=== PATIENT | male | born 1965 | race Caucasian/White ===

== ENCOUNTER 2019-06-21 02:13 | Emergency (ER) | payer OTHER ==
[~2019-06-21] VITALS: Ht 177.8 cm; Wt 109.2 kg
--- NOTE | 2019-06-21 02:35 | ED.ADGEN ---
Past History Past Medical History: Gallstones, GERD, Hypertension Adult General Chief Complaint Chief Complaint ".. I think it my gall bladder.. I had the same symptoms...about 9 yrs ago.. my gall bladder full of stones.. but I had emmanuel cakes.... and full meal tonight.. and it set it off..." HPI HPI Patient is a 54 year old male who presents with above hx and complaints nausea, vomiting, right upper quadrant pain which she relates is similar to his gallbladder exacerbations. Patient denies any intake bad food. Recent travel to [facility]. Denies any history of tarry stools. Denies any history immunosuppression. Normally follows at [facility]. Pt. father and daughter have both had to have cholecystectomy for gallbladder disease. Review of Systems Review of Systems Constitutional: Denies fever or chills [] Eyes: Denies change in visual acuity, redness, or eye pain [] HENT: Denies nasal congestion or sore throat [] Respiratory: Denies cough or shortness of breath [] Cardiovascular: No additional information not addressed in HPI [] GI: Plaints of right upper quadrant abdominal pain, nausea, vomiting, . Denies bloody stools or diarrhea [] : Denies dysuria or hematuria [] Musculoskeletal: Denies back pain or joint pain [] Integument: Denies rash or skin lesions [] Neurologic: Denies headache, focal weakness or sensory changes [] Endocrine: Denies polyuria or polydipsia [] All other systems were reviewed and found to be within normal limits, except as documented in this note. Family History Family History Noncontributory Current Medications Current Medications Current Medications Medications (Trade) Dose Ordered Sig/Teodora Start Time Stop Time Status Last Admin Dose Admin Famotidine (Pepcid Vial) 20 mg 1X ONCE 06/21/19 03:30 06/21/19 03:31 DC 06/21/19 03:38 20 MG Info (Do NOT chart on this entry -- for MONITORING) 1 each PRN DAILY PRN 06/21/19 03:15 06/21/19 05:36 DC Iohexol (Omnipaque 240 Mg/ml) 30 ml 1X ONCE 06/21/19 03:30 06/21/19 03:31 DC 06/21/19 04:14 30 ML Iohexol (Omnipaque 300 Mg/ml) 75 ml 1X ONCE 06/21/19 03:30 06/21/19 03:31 DC 06/21/19 04:14 75 ML Ketorolac Tromethamine (Toradol 30mg Vial) 30 mg 1X ONCE 06/21/19 05:15 06/21/19 05:17 DC 06/21/19 05:16 30 MG Lactated Ringer's 1,000 ml @ 1,000 mls/hr Q1H 06/21/19 03:30 06/21/19 04:29 DC 06/21/19 03:38 1,000 MLS/HR Magnesium Hydroxide (Milk Of Magnesia) 2,400 mg 1X ONCE 06/21/19 03:30 06/21/19 03:31 DC 06/21/19 03:38 2,400 MG Morphine Sulfate (Morphine 10mg Syringe) 10 mg 1X ONCE 06/21/19 04:00 06/21/19 04:01 DC 06/21/19 03:38 10 MG Ondansetron HCl (Zofran) 4 mg STK-MED ONCE 06/21/19 05:13 06/21/19 05:13 DC See nursing for home meds Allergies Allergies Allergies Coded Allergies Type Severity Reaction Last Updated Verified No Known Drug Allergies 06/21/19 No No known drug allergies Physical Exam Physical Exam Constitutional: Well developed, well nourished, no acute distress, non-toxic appearance. [] HENT: Normocephalic, atraumatic, bilateral external ears normal, oropharynx moist, no oral exudates, nose normal. [] Eyes: PERRLA, EOMI, conjunctiva normal, no discharge. [] Neck: Normal range of motion, no tenderness, supple, no stridor. [] Cardiovascular:Heart rate regular rhythm, no murmur [] Lungs & Thorax: Bilateral breath sounds clear to auscultation [] Abdomen: Bowel sounds normal, soft, he has right upper tenderness tenderness, no masses, no pulsatile masses. [] Rebound to right upper drip. Skin: Warm, dry, no erythema, no rash. [] Back: No tenderness, no CVA tenderness. [] Extremities: No tenderness, no cyanosis, no clubbing, ROM intact, no edema. [] Neurologic: Alert and oriented X 3, normal motor function, normal sensory function, no focal deficits noted. [] Psychologic: Affect normal, judgement normal, mood normal. [] Current Patient Data Vital Signs Vital Signs Date Time Temp Pulse Resp B/P (MAP) Pulse Ox O2 Delivery O2 Flow Rate FiO2 06/21/19 05:17 66 18 146/92 (110) 97 Room Air 06/21/19 02:15 98.7 Lab Results Laboratory Tests Test 06/21/19 03:25 06/21/19 03:30 Urine Collection Type Unknown Urine Color Yellow Urine Clarity Clear Urine pH 5.0 Urine Specific Zillah >=1.030 Urine Protein Neg (NEG-TRACE) Urine Glucose (UA) Neg mg/dL (NEG) Urine Ketones (Stick) Neg mg/dL (NEG) Urine Blood Neg (NEG) Urine Nitrite Neg (NEG) Urine Bilirubin Neg (NEG) Urine Urobilinogen Dipstick 0.2 mg/dL (0.2 mg/dL) Urine Leukocyte Esterase Neg (NEG) Urine RBC 0 /HPF (0-2) Urine WBC Rare /HPF (0-4) Urine Squamous Epithelial Cells Occ /LPF Urine Bacteria 0 /HPF (0-FEW) Urine Opiates Screen Neg (NEG) Urine Methadone Screen Neg (NEG) Urine Barbiturates Neg (NEG) Urine Phencyclidine Screen Neg (NEG) Urine Amphetamine/Methamphetamine Neg (NEG) Urine Benzodiazepines Screen Neg (NEG) Urine Cocaine Screen Neg (NEG) Urine Cannabinoids Screen Neg (NEG) Urine Ethyl Alcohol Neg (NEG) White Blood Count 8.4 x10^3/uL (4.0-11.0) Red Blood Count 5.15 x10^6/uL (4.30-5.70) Hemoglobin 14.5 g/dL (13.0-17.5) Hematocrit 43.9 % (39.0-53.0) Mean Corpuscular Volume 85 fL (79-100) Mean Corpuscular Hemoglobin 28 pg (25-35) Mean Corpuscular Hemoglobin Concent 33 g/dL (31-37) Red Cell Distribution Width 13.4 % (11.5-14.5) Platelet Count 218 x10^3/uL (140-400) Neutrophils (%) (Auto) 65 % (31-73) Lymphocytes (%) (Auto) 26 % (24-48) Monocytes (%) (Auto) 7 % (0-9) Eosinophils (%) (Auto) 2 % (0-3) Basophils (%) (Auto) 1 % (0-3) Neutrophils # (Auto) 5.4 x10^3uL (1.8-7.7) Lymphocytes # (Auto) 2.2 x10^3/uL (1.0-4.8) Monocytes # (Auto) 0.5 x10^3/uL (0.0-1.1) Eosinophils # (Auto) 0.2 x10^3/uL (0.0-0.7) Basophils # (Auto) 0.1 x10^3/uL (0.0-0.2) Prothrombin Time 10.2 SEC (9.4-11.4) Prothrombin Time INR 1.0 (0.9-1.1) Activated Partial Thromboplast Time 25 SEC (23-33) Sodium Level 142 mmol/L (136-145) Potassium Level 4.2 mmol/L (3.5-5.1) Chloride Level 105 mmol/L (98-107) Carbon Dioxide Level 28 mmol/L (21-32) Anion Gap 9 (6-14) Blood Urea Nitrogen 12 mg/dL (8-26) Creatinine 1.3 mg/dL (0.7-1.3) Estimated GFR (Cockcroft-Gault) 57.3 Glucose Level 128 mg/dL (70-99) H Calcium Level 8.9 mg/dL (8.5-10.1) Total Bilirubin 0.4 mg/dL (0.2-1.0) Direct Bilirubin 0.1 mg/dL (0.0-0.2) Aspartate Amino Transferase (AST) 21 U/L (15-37) Alanine Aminotransferase (ALT) 26 U/L (16-63) Alkaline Phosphatase 44 U/L (46-116) L Creatine Kinase 226 U/L (39-308) Troponin I Quantitative < 0.017 ng/mL (0-0.055) Total Protein 7.1 g/dL (6.4-8.2) Albumin 4.0 g/dL (3.4-5.0) Amylase Level 40 U/L (25-115) Lipase 148 U/L (73-393) EKG EKG []My interpretation EKG shows a sinus rhythm at 63 bpm. Some J-point elevation in V2 and 3 but no contralateral changes[] Radiology/Procedures Radiology/Procedures [address] [address] IMAGING REPORT Signed PATIENT: ENMANUEL MCKOY ACCOUNT: [id number] : 1965 LOCATION: ER AGE: 54 SEX: M EXAM STATUS: REG ER ORD. PHYSICIAN: PETTY DOWD MD REASON: Upper abdomen pain, nausea. Hx: Gallstones PROCEDURE: CT ABD PELV W/ORAL&IV CONTRAST CT ABD PELV W/ORAL IV CONTRAST History: Upper abdominal pain, nausea, history of gallstones Comparison: None. Technique: After administration of intravenous contrast, helical CT of the abdomen and pelvis was performed from the lung bases through the ischial tuberosities. Coronal and sagittal reconstructions were obtained. 75 mL of Omnipaque 300 were used. One or more of the following dose reduction techniques were utilized: Automated exposure control (AEC), Adjustment of mA and/or kV according to patient size, Use of iterative reconstruction technique such as ASiR, CT scan done according to ALARA and image gently/image wisely Abdomen Findings: The visualized lung bases are clear. The liver, pancreas, spleen, and bilateral adrenal glands are normal. Cholelithiasis. Symmetric renal enhancement. There is no focal renal mass. There is no hydronephrosis. The visualized loops of small bowel are normal. The visualized loops of large bowel are normal. There is no evidence of bowel obstruction. Appendix is normal. There is no free fluid. There is no mesenteric or retroperitoneal adenopathy. The abdominal aorta is normal in caliber. Pelvis Findings: Diffuse bladder wall thickening. Mildly enlarged prostate measures 5 cm in transverse dimension. No pelvic free fluid. There is no pelvic or inguinal adenopathy. Degenerative changes of the spine.. IMPRESSION: 1. Cholelithiasis. Normal caliber common bile duct. 2. Diffuse bladder wall thickening, which may relate to under distention, obstructive uropathy, or potentially cystitis. Consider urinalysis, as clinically warranted. Electronically signed by: Cate Beaver MD (06/21/2019 4:36 AM) [facility] DICTATED AND SIGNED BY: CATE BEAVER MD DATE: 06/21/19 0436 CC: PETTY DOWD MD; WINIFRED BRENNAN MD ~ [address] [place] [id number] IMAGING REPORT Signed PATIENT: ENMANUEL MCKOY ACCOUNT: [id number] : 1965 LOCATION: ER AGE: 54 SEX: M EXAM STATUS: REG ER ORD. PHYSICIAN: PETTY ODWD MD REASON: Upper abdomen pain PROCEDURE: ACUTE ABDOMEN SERIES ACUTE ABDOMEN SERIES INDICATION: Upper abdominal pain. COMPARISON STUDY: None. FINDINGS: Lungs: Normal lung volume. No pulmonary mass or consolidation. The tracheobronchial tree and hilar structures are normal. Pleura: No pleural effusion or pneumothorax. Heart and Mediastinum: The cardiomediastinal silhouette is normal. The great vessels of the thorax are normal. Abdomen: Nonobstructive bowel gas pattern. Moderate colonic stool. Bones and Soft Tissues: The bones and soft tissues are within normal limits. IMPRESSION: No acute cardiopulmonary process. Nonobstructive bowel gas pattern. Moderate colonic stool. Electronically signed by: Cate Beaver MD (06/21/2019 4:10 AM) [facility] DICTATED AND SIGNED BY: CATE BEAVER MD DATE: 06/21/19409 CC: PETTY DOWD MD; WINIFRED BRENNAN Course & Med Decision Making Course & Med Decision Making Pertinent Labs and Imaging studies reviewed. (See chart for details) Pr. remain on clear fluid diet for the next 2 days. No solid or milk products. Tylenol and ibuprofen for pain. May take Vicoprofen up 4 times a day for marked discomfort. Take Zofran 8 mg up to 4 times a day for nausea and vomiting. Take Zantac 50 mg twice a day. Follow-up primary care. Follow up with surgery for elective cholecystectomy. Return if any concerns. [] Final Impression Final Impression 1. Abdomen pain[] 2. Biliary Colic/stones 3. Constipation Dragon Disclaimer Dragon Disclaimer This electronic medical record was generated, in whole or in part, using a voice recognition dictation system. Dragon Disclaimer This chart was dictated in whole or in part using Voice Recognition software in a busy, high-work load, and often noisy Emergency Department environment. It may contain unintended and wholly unrecognized errors or omissions. PETTY DOWD MD Jun 21, 2019 02:35
--- NOTE | 2019-06-21 02:56 | EKG ---
[address] [address] Test Date: 2019-06-21 Test Time: 02:53:41 Pat Name: ENMANUEL MCKOY Department: Room: Gender: M [employer]otype [employer]ator: : 1965 Requested By: PETTY DOWD Order Number: [id number] Reading MD: Measurements Intervals Patten Rate: 63 P: 39 GA: 182 QRS: 56 QRSD: 92 T: 13 QT: 370 QTc: 381 Interpretive Statements SINUS RHYTHM NORMAL ECG RI6.01 No previous ECG available for comparison
[2019-06-21] MEDS ORDERED: CONTRAST GIVEN MC PRN (03:15)
[2019-06-21] MEDS ORDERED: MAGNESIUM HYDROXIDE 2,400 MG/30 ML ORAL.SUSP. PO ONE (03:30)
[2019-06-21] MEDS ORDERED: IOHEXOL 240 MG/ML 50ML VIAL. PO ONE (03:30)
[2019-06-21] MEDS ORDERED: IV RINGERS SOLUTION,LACTATED 1,000 ML IV SCH (03:30)
[2019-06-21] MEDS ORDERED: FAMOTIDINE 20 MG/2 ML VIAL IVP ONE (03:30)
[2019-06-21] MEDS ORDERED: IOHEXOL 300 MG/ML 75 ML VIAL. IV ONE (03:30)
[2019-06-21 03:42] LABS: BASO # 0.1 x10^3/uL (0.0-0.2); BASO % 1 % (0-3); EOS # 0.2 x10^3/uL (0.0-0.7); EOS % 2 % (0-3); HEMATOCRIT 43.9 % (39.0-53.0); HEMOGLOBIN 14.5 g/dL (13.0-17.5); LYMPH # 2.2 x10^3/uL (1.0-4.8); LYMPH % 26 % (24-48); MEAN CORPUSCULAR HEMOGLOBIN 28 pg (25-35); MEAN CORPUSCULAR HGB CONC 33 g/dL (31-37); MEAN CORPUSCULAR VOLUME 85 fL (79-100); MONO # 0.5 x10^3/uL (0.0-1.1); MONO % 7 % (0-9); NEUT # 5.4 x10^3uL (1.8-7.7); NEUT % 65 % (31-73); PLATELET COUNT 218 x10^3/uL (140-400); RED BLOOD COUNT 5.15 x10^6/uL (4.30-5.70); RED CELL DISTRIBUTION WIDTH 13.4 % (11.5-14.5); WHITE BLOOD COUNT 8.4 x10^3/uL (4.0-11.0)
[2019-06-21 03:56] LABS: BARBITURATES NEG (NEG); BENZODIAZEPINES NEG (NEG); CANNABINOIDS NEG (NEG); COCAINE NEG (NEG); METHADONE NEG (NEG); OPIATES NEG (NEG); PHENCYCLIDINE NEG (NEG)
[2019-06-21 04:00] LABS: CALCIUM 8.9 mg/dL (8.5-10.1); CREATININE 1.3 mg/dL (0.7-1.3); DIRECT BILIRUBIN 0.1 mg/dL (0.0-0.2); GFR 57.3; POTASSIUM 4.2 mmol/L (3.5-5.1); TOTAL BILIRUBIN 0.4 mg/dL (0.2-1.0); TOTAL PROTEIN 7.1 g/dL (6.4-8.2)
[2019-06-21] MEDS ORDERED: MORPHINE SULFATE 10 MG/ML SYRINGE. SQ ONE (04:00)
--- NOTE | 2019-06-21 04:12 | RAD ---
ACUTE ABDOMEN SERIES INDICATION: Upper abdominal pain. COMPARISON STUDY: None. FINDINGS: Lungs: Normal lung volume. No pulmonary mass or consolidation. The tracheobronchial tree and hilar structures are normal. Pleura: No pleural effusion or pneumothorax. Heart and Mediastinum: The cardiomediastinal silhouette is normal. The great vessels of the thorax are normal. Abdomen: Nonobstructive bowel gas pattern. Moderate colonic stool. Bones and Soft Tissues: The bones and soft tissues are within normal limits. IMPRESSION: No acute cardiopulmonary process. Nonobstructive bowel gas pattern. Moderate colonic stool. Electronically signed by: Moises Beaver MD (06/21/2019 4:10 AM) [facility]
[2019-06-21 04:14] LABS: AMPHETAMINE/METHAMPHETAMINE NEG (NEG)
--- NOTE | 2019-06-21 04:39 | RAD ---
CT ABD PELV W/ORAL IV CONTRAST History: Upper abdominal pain, nausea, history of gallstones Comparison: None. Technique: After administration of intravenous contrast, helical CT of the abdomen and pelvis was performed from the lung bases through the ischial tuberosities. Coronal and sagittal reconstructions were obtained. 75 mL of Omnipaque 300 were used. One or more of the following dose reduction techniques were utilized: Automated exposure control (AEC), Adjustment of mA and/or kV according to patient size, Use of iterative reconstruction technique such as ASiR, CT scan done according to ALARA and image gently/image wisely Abdomen Findings: The visualized lung bases are clear. The liver, pancreas, spleen, and bilateral adrenal glands are normal. Cholelithiasis. Symmetric renal enhancement. There is no focal renal mass. There is no hydronephrosis. The visualized loops of small bowel are normal. The visualized loops of large bowel are normal. There is no evidence of bowel obstruction. Appendix is normal. There is no free fluid. There is no mesenteric or retroperitoneal adenopathy. The abdominal aorta is normal in caliber. Pelvis Findings: Diffuse bladder wall thickening. Mildly enlarged prostate measures 5 cm in transverse dimension. No pelvic free fluid. There is no pelvic or inguinal adenopathy. Degenerative changes of the spine.. IMPRESSION: 1. Cholelithiasis. Normal caliber common bile duct. 2. Diffuse bladder wall thickening, which may relate to under distention, obstructive uropathy, or potentially cystitis. Consider urinalysis, as clinically warranted. Electronically signed by: Moises Beaver MD (06/21/2019 4:36 AM) [facility]
[2019-06-21] MEDS ORDERED: HYDR-1179 PO (05:00)
[2019-06-21] MEDS ORDERED: RANI-376 PO (05:00)
[2019-06-21] MEDS ORDERED: ONDA8TAB9 PO (05:00)
[2019-06-21] MEDS ORDERED: ONDANSETRON PF 4 MG/2 ML VIAL. ONE (05:13)
[2019-06-21] MEDS ORDERED: KETOROLAC 30 MG/ML VIAL. IV ONE (05:15)
[2019-06-21 05:17] VITALS: BP 146/92
[2019-06-21 05:24] LABS: BACTERIA,URINE 0 /HPF (0-FEW); BILIRUBIN,URINE NEG (NEG); CLARITY,URINE CLEAR; COLOR,URINE YELLOW; GLUCOSE,URINE NEG (NEG); NITRITE,URINE NEG (NEG); RBC,URINE 0 /HPF (0-2); UROBILINOGEN,URINE 0.2 mg/dL (0.2 mg/dL); WBC,URINE RARE /HPF (0-4)
[2019-06-21 05:25] LABS: SQUAMOUS EPITHELIAL CELL,UR OCC /LPF
[2019-06-21] MEDS ORDERED: ONDANSETRON PF 4 MG/2 ML VIAL. IV ONE (05:30)
== END 2019-06-21 05:23 | disposition home or self-care (01) ==
LOC: ER 02:13
DX: K80.20 Calculus of gallbladder without cholecystitis without obstruction (principal); K59.00 Constipation, unspecified; R11.2 Nausea with vomiting, unspecified; K21.9 Gastro-esophageal reflux disease without esophagitis; I10 Essential (primary) hypertension
CPT/HCPCS: 36415; 74022; 74177; 80048; 80076; 80307; 81001; 82150; 82550; 83690; 84484; 85025; 85610; 85730; 93005; 96361; 96372; 96374; 96375; 99285; J1885; J2270; J2405; J3490; J7120; Q9966; Q9967

== ENCOUNTER 2020-01-11 14:10 | Emergency (ER) | payer OTHER ==
[~2020-01-11] VITALS: Ht 177.8 cm; Wt 109.2 kg
[2020-01-11 14:10] VITALS: BP 131/75
[~2020-01-11 14:10] MED LIST: HYDR-1179 PO; ONDA8TAB9 PO; RANI-376 PO
[2020-01-11] MEDS ORDERED: IV NORMAL SALINE 50ML 50 ML ONE (14:40)
[2020-01-11] MEDS ORDERED: PIPERACILLIN/TAZOBACTAM 4.5 GM VIAL IV ONE (14:41)
[2020-01-11] MEDS ORDERED: IV NORMAL SALINE 1,000ML 1,000 ML IV ONE (15:00)
[2020-01-11] MEDS ORDERED: PIPERACILLIN/TAZOBACTAM 4.5 GM in IV NORMAL SALINE 50ML 50 ML IV ONE (15:00)
[2020-01-11 15:05] LABS: CALCIUM 9.2 mg/dL (8.5-10.1); CREATININE 1.2 mg/dL (0.7-1.3); GFR 62.9; POTASSIUM 3.8 mmol/L (3.5-5.1)
[2020-01-11 15:10] LABS: BASO # 0.1 x10^3/uL (0.0-0.2); BASO % 1 % (0-3); EOS # 0.1 x10^3/uL (0.0-0.7); EOS % 1 % (0-3); HEMATOCRIT 42.9 % (39.0-53.0); HEMOGLOBIN 14.3 g/dL (13.0-17.5); LYMPH % 19 % (24-48); MEAN CORPUSCULAR HEMOGLOBIN 28 pg (25-35); MEAN CORPUSCULAR HGB CONC 33 g/dL (31-37); MEAN CORPUSCULAR VOLUME 86 fL (79-100); MONO # 0.9 x10^3/uL (0.0-1.1); MONO % 9 % (0-9); NEUT # 7.7 x10^3uL (1.8-7.7); NEUT % 71 % (31-73); PLATELET COUNT 198 x10^3/uL (140-400); RED BLOOD COUNT 5.02 x10^6/uL (4.30-5.70); RED CELL DISTRIBUTION WIDTH 13.8 % (11.5-14.5); WHITE BLOOD COUNT 10.7 x10^3/uL (4.0-11.0)
[2020-01-11 15:11] LABS: ALBUMIN 3.9 g/dL (3.4-5.0); ALBUMIN/GLOBULIN RATIO 1.1 (1.0-1.7); C REACTIVE PROTEIN 77.3 mg/L (0-3.3); TOTAL BILIRUBIN 0.6 mg/dL (0.2-1.0); TOTAL PROTEIN 7.4 g/dL (6.4-8.2)
--- NOTE | 2020-01-11 15:18 | RAD ---
Left foot 3 views portable: Reason for examination: Stepped on a nail 2 days ago. No acute fracture or dislocation is seen. The bone density is normal. No abnormal periosteal reaction is seen. Joint spaces are maintained. No radiopaque foreign body is identified. There does appear to be some soft tissue edema. IMPRESSION: No acute bony abnormality in the left foot. No radiopaque foreign body. Soft tissue edema. Electronically signed by: Mirta Magallanes MD (01/11/2020 3:15 PM) [email or web address]
--- NOTE | 2020-01-11 15:37 | PHYS DOC ---
Past History Past Medical History: Gallstones, GERD, Hypertension Past Surgical History: Cholecystectomy Alcohol Use: None Drug Use: None Adult General Chief Complaint Chief Complaint: FOOT INJURY PAIN HPI HPI Patient is a 54-year-old man who presented to ER today for evaluation of left foot pain. Patient said 2 days ago he was working outside, had his shoe on, stepped onto a nail. The nail went through his shoe and punctured the sole left foot. Patient went to see her doctor 2 days ago, said that her doctor was able to pull out a piece of plastic in the wound and put him on Keflex to prevent infection. Patient is up-to-date on his tetanus vaccination. He had no history of diabetes. Patient noted more swelling on the back of his left foot, pain when he walks. Patient denies any fever. He came here today for further evaluation. Review of Systems Review of Systems Constitutional: Denies fever or chills [] Eyes: Denies change in visual acuity, redness, or eye pain [] HENT: Denies nasal congestion or sore throat [] Respiratory: Denies cough or shortness of breath [] Cardiovascular: No additional information not addressed in HPI [] GI: Denies abdominal pain, nausea, vomiting, bloody stools or diarrhea [] : Denies dysuria or hematuria [] Musculoskeletal: Positive for left foot swelling and pain. Integument: Denies rash or skin lesions [] Neurologic: Denies headache, focal weakness or sensory changes [] Endocrine: Denies polyuria or polydipsia [] All other systems were reviewed and found to be within normal limits, except as documented in this note. Current Medications Current Medications Current Medications Medications (Trade) Dose Ordered Sig/Teodora Start Time Stop Time Status Last Admin Dose Admin Piperacillin Sod/ Tazobactam Sod (Zosyn) 4.5 gm STK-MED ONCE 01/11/20 14:41 01/11/20 14:41 DC Piperacillin Sod/ Tazobactam Sod 4.5 gm/Sodium Chloride 50 ml @ 100 mls/hr 1X ONCE 01/11/20 15:00 01/11/20 15:29 DC 01/11/20 14:50 100 MLS/HR Sodium Chloride 50 ml @ As Directed STK-MED ONCE 01/11/20 14:40 01/11/20 14:41 DC Allergies Allergies Allergies Coded Allergies Type Severity Reaction Last Updated Verified No Known Drug Allergies 06/21/19 No Physical Exam Physical Exam Constitutional: Well developed, well nourished, no acute distress, non-toxic quiana earance. [] HENT: Normocephalic, atraumatic, bilateral external ears normal, oropharynx moist, no oral exudates, nose normal. [] Eyes: PERRLA, EOMI, conjunctiva normal, no discharge. [] Neck: Normal range of motion, no tenderness, supple, no stridor. [] Cardiovascular:Heart rate regular rhythm, no murmur [] Lungs & Thorax: Bilateral breath sounds clear to auscultation [] Abdomen: Bowel sounds normal, soft, no tenderness, no masses, no pulsatile masses. [] Skin: Warm, dry, no erythema, no rash. [] Back: No tenderness, no CVA tenderness. [] Extremities: There is a puncture wound on the sole of left foot, no purulent drainage, no obvious foreign body noted, there is swelling and erythema on the back of left foot. Neurologic: Alert and oriented X 3, normal motor function, normal sensory function, no focal deficits noted. [] Psychologic: Affect normal, judgement normal, mood normal. [] Current Patient Data Vital Signs Vital Signs Date Time Temp Pulse Resp B/P (MAP) Pulse Ox O2 Delivery O2 Flow Rate FiO2 01/11/20 14:10 97.5 80 18 131/75 (93) 98 Room Air Lab Results Laboratory Tests Test 01/11/20 14:35 White Blood Count 10.7 x10^3/uL (4.0-11.0) Red Blood Count 5.02 x10^6/uL (4.30-5.70) Hemoglobin 14.3 g/dL (13.0-17.5) Hematocrit 42.9 % (39.0-53.0) Mean Corpuscular Volume 86 fL (79-100) Mean Corpuscular Hemoglobin 28 pg (25-35) Mean Corpuscular Hemoglobin Concent 33 g/dL (31-37) Red Cell Distribution Width 13.8 % (11.5-14.5) Platelet Count 198 x10^3/uL (140-400) Neutrophils (%) (Auto) 71 % (31-73) Lymphocytes (%) (Auto) 19 % (24-48) L Monocytes (%) (Auto) 9 % (0-9) Eosinophils (%) (Auto) 1 % (0-3) Basophils (%) (Auto) 1 % (0-3) Neutrophils # (Auto) 7.7 x10^3uL (1.8-7.7) Lymphocytes # (Auto) 2.0 x10^3/uL (1.0-4.8) Monocytes # (Auto) 0.9 x10^3/uL (0.0-1.1) Eosinophils # (Auto) 0.1 x10^3/uL (0.0-0.7) Basophils # (Auto) 0.1 x10^3/uL (0.0-0.2) Erythrocyte Sedimentation Rate Pending Sodium Level 141 mmol/L (136-145) Potassium Level 3.8 mmol/L (3.5-5.1) Chloride Level 103 mmol/L (98-107) Carbon Dioxide Level 29 mmol/L (21-32) Anion Gap 9 (6-14) Blood Urea Nitrogen 14 mg/dL (8-26) Creatinine 1.2 mg/dL (0.7-1.3) Estimated GFR (Cockcroft-Gault) 62.9 BUN/Creatinine Ratio 12 (6-20) Glucose Level 92 mg/dL (70-99) Calcium Level 9.2 mg/dL (8.5-10.1) Total Bilirubin 0.6 mg/dL (0.2-1.0) Aspartate Amino Transferase (AST) 20 U/L (15-37) Alanine Aminotransferase (ALT) 31 U/L (16-63) Alkaline Phosphatase 50 U/L (46-116) C-Reactive Protein 77.3 mg/L (0-3.3) H Total Protein 7.4 g/dL (6.4-8.2) Albumin 3.9 g/dL (3.4-5.0) Albumin/Globulin Ratio 1.1 (1.0-1.7) EKG EKG [] Radiology/Procedures Radiology/Procedures [][address] [address] IMAGING REPORT Signed PATIENT: ENMANUEL MCKOY ACCOUNT: [id number] : 1965 LOCATION: ER AGE: 54 SEX: M EXAM STATUS: REG ER ORD. PHYSICIAN: ANUJ DACOSTA DO REASON: STEPPED ONTO A NAIL TWO DAYS AGO PROCEDURE: FOOT LEFT 3V Left foot 3 views portable: Reason for examination: Stepped on a nail 2 days ago. No acute fracture or dislocation is seen. The bone density is normal. No abnormal periosteal reaction is seen. Joint spaces are maintained. No radiopaque foreign body is identified. There does appear to be some soft tissue edema. IMPRESSION: No acute bony abnormality in the left foot. No radiopaque foreign body. Soft tissue edema. Electronically signed by: Jonatan Leo MD (01/11/2020 3:15 PM) [id number] DICTATED AND SIGNED BY: JONATAN LEO MD DATE: 01/11/20 1515 CC: WINIFRED BRENNAN MD; ANUJ DACOSTA DO ~ Course & Med Decision Making Course & Med Decision Making Pertinent Labs and Imaging studies reviewed. (See chart for details) Patient was found to have cellulitis, he was on Keflex but it would not cover Pseudomonas. Patient will be discharged home with Cipro together with Keflex. Patient did not want to stay in the hospital. Dragon Disclaimer Dragon Disclaimer This electronic medical record was generated, in whole or in part, using a voice recognition dictation system. Departure Departure: Impression: Primary Impression: Puncture wound of foot, left Additional Impression: Cellulitis Disposition: HOME, SELF-CARE Condition: STABLE Referrals: WINIFRED BRENNAN MD (PCP) follow up with your doctor on Tuesday for reevaluation. Return if you have fever, worse swelling and redness. Patient Instructions: Cellulitis, Puncture Wound Additional Instructions: continue taking KEFLEX PRESCRIBED TOGETHER WITH THE NEW ANTIBIOTIC Scripts Ciprofloxacin Hcl (CIPRO) 500 Mg Tablet 1 TAB PO BID for PUNCTURE WOUND for 10 Days, #20 TAB 0 Refills Prov: ANUJ DACOSTA DO 01/11/20 Problem Qualifiers ANUJ DACOSTA DO Jan 11, 2020 15:37
[2020-01-11 16:24] LABS: SEDIMENTATION RATE 46 (0-15)
[2020-01-11] MEDS ORDERED: CIPR500T94 PO (17:04)
== END 2020-01-11 17:06 | disposition home or self-care (01) ==
LOC: ER 14:10
DX: S91.332A Puncture wound without foreign body, left foot, initial encounter (principal); L03.116 Cellulitis of left lower limb; K21.9 Gastro-esophageal reflux disease without esophagitis; I10 Essential (primary) hypertension; W22.8XXA Striking against or struck by other objects, initial encounter; Y93.9 Activity, unspecified; Y92.89 Other specified places as the place of occurrence of the external cause; Y99.8 Other external cause status
CPT/HCPCS: 36415; 73630; 80053; 85025; 85651; 86140; 96365; 99284; J2543; J7030